=== PATIENT | female | born 2000 | race Caucasian/White ===

== ENCOUNTER 2018-09-21 18:04 | Emergency (ER) | payer MEDICAID, OTHER ==
--- NOTE | 2018-09-21 20:14 | ED Physician Documentation ---
PD HPI OPHTHO - Stated complaint Stated Complaint: LT EYE PX - Chief complaint Chief Complaint: Heent - History obtained from History obtained from: Patient - History of Present Illness Timing - onset: How many days ago (several) Timing - duration: Days (several) Timing - details: Gradual onset, Still present Location: Left Quality / character: Aching (feeling of irritation lower lid on left then felt a tender lump inside of lid. Rest of eye feels okay.) Associated symptoms: Redness, Swelling (lower lid in the middle) Contributing factors: No: Exposed to conjunctivitis, Wears contacts Similar symptoms before: Has not had sx before Recently seen: Not recently seen Review of Systems Constitutional: denies: Fever Eyes: reports: Irritation. denies: Loss of vision, Photophobia, Discharge Nose: denies: Rhinorrhea / runny nose, Congestion Throat: denies: Sore throat Respiratory: denies: Cough PD PAST MEDICAL HISTORY - Past Medical History Past Medical History: No - Present Medications Home Medications: Ambulatory Orders Medication Instructions Recorded Confirmed Ketotifen Fumarate 2 drops EACHEYE QID #1 bottle 09/21/18 - Allergies Allergies/Adverse Reactions: Allergies Allergy/AdvReac Type Severity Reaction Status Date / Time No Known Drug Allergies Allergy Verified 09/21/18 18:15 PD ED PE NORMAL - Vitals Vital signs reviewed: Yes - General General: Alert and oriented X 3, No acute distress, Well developed/nourished - HEENT HEENT: PERRL, EOMI, Ears normal, Pharynx benign - Neck Neck: Supple, no meningeal sign, No adenopathy PD ED PE EXPANDED - Eyes Eyes: Other (left lower eyelid with some general redness without discharge. Focal area of redness with local swelling mid portion inside. Slgihtly palpable from outside of lid. ) Results - Vitals Vitals: Oxygen O2 Source Room air PD MEDICAL DECISION MAKING - ED course Complexity details: considered differential (some irritated lower conjunctiva, and focal area redness and swelling c/w stye inner eyelid. ), d/w patient Departure - Departure Disposition: 01 Home, Self Care Clinical Impression: Conjunctivitis, acute Qualifiers: Acute conjunctivitis type: unspecified Laterality: left Qualified Code(s): H10.32 - Unspecified acute conjunctivitis, left eye Stye Qualifiers: Laterality: left Eyelid: lower Qualified Code(s): H00.015 - Hordeolum externum left lower eyelid Condition: Stable Record reviewed to determine appropriate education?: Yes Instructions: ED Naga Prescriptions: Ketotifen Fumarate 2 drops EACHEYE QID #1 bottle Comments: Use the antibiotic eyedrops 4 times a day for the next 4-5 days until fully cleared. Use the antihistamine drops (ketotifen) in both eyes 4 times a day 1-2 drops for the initial day or 2 and then just the left eye until fully improved. I think there is some inflammation of the eye causing the redness and itchiness and then some plugging of the gland that got infected which is the stye part. Recheck if not improved over the next few days. Discharge Date/Time: 09/21/18 21:24
[2018-09-21] MEDS ORDERED: PROPARACAINE 0.5% OPHTH DROPS 15 ML EACHEYE STA (20:29)
[2018-09-21] MEDS ORDERED: SULFACETAMIDE 10% OPHTH DROPS LEFTEYE STA (20:53)
[2018-09-21 21:25] VITALS: BP 110/68
== END 2018-09-21 21:24 | disposition home or self-care (01) ==
LOC: ED 18:04
DX: H10.32 Unspecified acute conjunctivitis, left eye (principal); H00.15 Chalazion left lower eyelid
CPT/HCPCS: 99283; A9270; J3490

== ENCOUNTER 2024-02-02 13:15 | Emergency (ER) | payer OTHER ==
--- NOTE | 2024-02-02 13:33 | ED Physician Documentation ---
PD HPI LOWER EXT INJURY - Stated complaint Stated Complaint: L LEG SWELLING PX - Chief complaint Chief Complaint: Ext Problem - History obtained from History obtained from: Patient - History of Present Illness PD HPI LOW EXT INJURY LOCATION: Left, Knee Type of injury: Fall (She was 3 steps up on a stepladder and fell that she turned lifting a box. Landed to the left with a twist and a impact. Continued pain and swelling.), Twist Where injury occurred: Home Timing - onset: How many days ago (6) Timing - duration: Days (6) Timing - details: Abrupt onset, Still present Review of Systems Skin: denies: Abrasion (s), Laceration (s) Neurologic: denies: Focal weakness, Numbness PD PAST MEDICAL HISTORY - Past Medical History Past Medical History: No Cardiovascular: None Respiratory: None Neuro: None Endocrine/Autoimmune: None GI: None COMPUTER MECHANIC: None : None HEENT: None Psych: None Musculoskeletal: None Derm: None - Past Surgical History Past Surgical History: No - Present Medications Home Medications: Ambulatory Orders Medication Instructions Recorded Confirmed No Known Home Medications 02/02/24 02/02/24 - Allergies Allergies/Adverse Reactions: Allergies Allergy/AdvReac Type Severity Reaction Status Date / Time No Known Drug Allergies Allergy Verified 02/02/24 13:32 - Social History Does the pt smoke?: No Smoking Status: Never smoker Does the pt drink ETOH?: No Does the pt have substance abuse?: No - Immunizations Immunizations are current?: Yes - POLST Patient has POLST: No PD ED PE NORMAL - Vitals Vital signs reviewed: Yes - General General: Alert and oriented X 3, Well developed/nourished - Derm Derm: Normal color, Warm and dry - Extremities Extremities: Other (Mild swelling on the lateral aspect of the knee. No obvious effusion per se. Ligament testing for cruciate and collaterals is without any pain or laxity. Impaction testing without pain. Tenderness off to the lateral knee. Hamstring tendons are firm and nontender.) - Neuro Neuro: No motor deficit, No sensory deficit Results - Vitals Vitals: Vital Signs - 24 hr 02/02/24 02/02/24 13:17 14:51 Temperature 36.6 C Heart Rate 55 L 55 L Respiratory 15 18 Rate Blood Pressure 118/67 124/80 O2 Saturation 100 100 Oxygen O2 Source Room air - Rads (name of study) left knee Relevant Findings:: Prelim report reviewed, EMP independent interpretation of test (no fractures nor acute process. Small fabella. ) PD Medical Decision Making - ED course Complexity details: considered differential (She was 3 steps up on a stepladder that tipped to the side as she was trying to lift a box. She fell to the left onto her knee and it twisted as she fell. Continued pain and swelling.), d/w patient Departure - Departure Disposition: 01 Home, Self Care Clinical Impression: Fall from ladder, Knee strain Condition: Stable Record reviewed to determine appropriate education?: Yes Instructions: ED Sprain Knee Comments: Your x-ray is normal of the knee. No signs of small chips or fractures. The main ligament testing of your knee also feels pretty sturdy and does not hurt so I do not feel any injury of the cruciate or collateral ligaments. He also does not sound like a torn cartilage/meniscus. I presume some mild strain of the supporting ligaments and muscles around the knee and I would anticipate this getting better with a wrap to help with swelling and some regular use of some ibuprofen over the next several days to week (400 mg 2-3 times daily) along with some ice periodically. Activity as tolerated and I would anticipate it improving over the next week or so. Forms: PCP List Discharge Date/Time: 02/02/24 14:54
[2024-02-02 13:37] VITALS: O2SAT 100
[2024-02-02] MEDS: IBUPROFEN 400 MG TABLET PO STA (14:19)
--- NOTE | 2024-02-02 14:51 | XRAY Report ---
PROCEDURE: Knee 3V LT INDICATIONS: fall from ladder, struck/twisted left knee TECHNIQUE: 3 views of the knee(s) were acquired. COMPARISON: None. FINDINGS: Bones: No acute displaced fracture. No dislocation. Soft tissues: Small joint effusion. IMPRESSION: No acute radiographic abnormality. There is a small joint effusion. If there is high concern for further derangement, consider MRI evaluation. Reviewed by: Casper Amaya MD on 02/02/2024 2:50 PM PDT Approved by: Casper Amaya MD on 02/02/2024 2:50 PM PDT Station ID: [id number]
[2024-02-02 14:55] VITALS: BP 124/80
== END 2024-02-02 14:54 | disposition home or self-care (01) ==
LOC: ED 13:15
DX: S86.812A Strain of other muscle(s) and tendon(s) at lower leg level, left leg, initial encounter (principal); W11.XXXA Fall on and from ladder, initial encounter
CPT/HCPCS: 73562; 99283; A9270